=== PATIENT | male | born 1930 | race Caucasian/White ===

== ENCOUNTER 2016-06-27 19:00 | Emergency (ER) | payer OTHER ==
[2016-06-27] MEDS ORDERED: IPRATROPIUM/ALBUTEROL 3 ML DEYVIAL IH ONE (19:12)
--- NOTE | 2016-06-27 19:14 | CPEKG ---
Heart Rate: 93 RR Interval: 645 P-R Interval: 172 QRSD Interval: 74 QT Interval: 372 QTC Interval: 463 P [place]: 48 QRS [place]: 9 T Wave [place]: 78 EKG Severity - NORMAL ECG - EKG Impression: SINUS RHYTHM Electronically Signed By: Wilder Calvo 27-Jun-2016 21:26:34
[2016-06-27 19:39] LABS: % IMMATURE GRANULYOCYTES 0.8 % (0.0-1.1); ABSOLUTE IMMATURE GRANULOCYTES 0.08 10^3/uL (0.00-0.10); ADD DIFF? NO; ADD MORPH? NO; ADD SCAN? NO; ATYPICAL LYMPHOCYTE FLAG 10 (0-99); FRAGMENT RBC FLAG 0 (0-99); HEMATOCRIT 42.4 % (40.0-51.0); HEMOGLOBIN 14.1 g/dL (13.7-17.5); LEFT SHIFT FLG 0 (0-99); LIPEMIA HEMOLYSIS FLAG 80 (0-99); MEAN CELL HEMOGLOBIN 31.3 pg (27.9-34.1); MEAN CELL HEMOGLOBIN CONCENTR. 33.3 g/dL (32.4-36.7); MEAN PLATELET VOLUME 9.8 fL (8.7-11.7); PLATELET CLUMPS FLAG 0 (0-99); PLATELET COUNT 298 10^3/uL (150-400); RED BLOOD CELL COUNT 4.51 10^6/uL (4.40-6.38); RED CELL DISTRIBUTION WIDTH 13.3 % (11.5-15.2)
[2016-06-27] MEDS ORDERED: ALBUTEROL 3 ML DEYVIAL IH ONE (19:44)
[2016-06-27 19:50] LABS: INR 1.92 (0.83-1.16); PROTIME(PATIENT) 21.7 SEC (12.0-15.0)
[2016-06-27 19:51] LABS: APTT 36.1 SEC (23.0-38.0)
[2016-06-27 19:53] LABS: CALCIUM 9.3 mg/dL (8.5-10.4); CREATININE 1.3 mg/dL (0.7-1.3); POTASSIUM 4.3 mEq/L (3.5-5.2)
[2016-06-27] MEDS ORDERED: predniSONE 20 MG TAB PO ONE (20:09)
[2016-06-27] MEDS ORDERED: ALBUTEROL INH PREPACK MDI TAKEHOME ONE ×2 (20:14→20:22)
[2016-06-27] MEDS ORDERED: LEVALBUTEROL 1.25 MG/3 ML DEYVIAL IH ONE (20:14)
--- NOTE | 2016-06-27 20:16 | EDPHY ---
H & P Stated Complaint: SOB, wheezing and Chest pain Time Seen by Provider: 06/27/16 19:19 HPI/ROS: This patient complains of wheezing with history of asthma. He is visiting his daughter in normally lives in [place]. He arrives here in [place] 1 week ago. Patient has a long history of asthma in takes Flovent and albuterol, though arrived with only his Flovent inhaler. Over the past 2 days or so the patient has developed increasing in his wheezing to current moderate wheezing. He mention to his daughter that he felt some slight discomfort in his chest when he walked up stairs today and this prompted the visit for further evaluation along with his wheezing. When queried about this chest discomfort he describes a feeling of tightness in his chest similar to previous asthma exacerbations that worsened with the exertion. He states that the chest pain only was during the time of walking up the steps he has had no chest pain before or since. ROS: No fevers or chills. He does have some fatigue. Other constitutional symptoms HEENT: No recent URI symptoms except for mild coryza that he attributes to "hayfever." Pulmonary: No clearly pleuritic pain. No respiratory distress. Cardiovascular: No heart palpitations or lightheadedness. No diaphoresis. No chest pain since walking up the stairs earlier. GI: No belly pain. No nausea or vomiting. He reports normal bowel movements. : No complaints Integumentary: No skin rash or pallor per daughter Endocrine: No complaints Musculoskeletal: No complaints Complete review of symptoms is otherwise negative Source: Patient, Family (Patient is accompanied by his daughter who also provides history) Exam Limitations: No limitations - Medical/Surgical History PMH: Asthma DVT And PE on warfarin BPH Hx Asthma: Yes Hx Chronic Respiratory Disease: No Hx Diabetes: No Hx Cardiac Disease: No Hx Renal Disease: No Hx Cirrhosis: No Hx Alcoholism: No Hx HIV/AIDS: No Hx Splenectomy or Spleen Trauma: No Other PMH: prostate CA, asthma, PE, DVT - Family History Significant Family History: No pertinent family hx - Social History Smoking Status: Never smoked Alcohol Use: None Drug Use: None Additional Social History: Patient usually lives in [place] with 1 of his daughters. He is visiting [place] for 1 week staying with another daughter while here. He flew here on a plane 1 week ago. He plans to be here through next Saturday the - Physical Exam Exam: Vital signs are notable initially for moderate tachypnea to the mid 20s, mild hypertension 180/103 O2 sat 93% room air normal pulse of 81 General Appearance: Pleasant 85-year-old male Alert, no distress. Eyes: Pupils equal and round no pallor or injection. ENT, Mouth: Mucous membranes moist. Respiratory: Diminished bilaterally with bilateral expiratory wheeze-moderate no rales. No respiratory distress. Cardiovascular: Regular rate and rhythm. No murmur gallop rub. No JVD. No leg swelling, edema or tenderness Gastrointestinal: Abdomen is soft and nontender, no masses, bowel sounds normal. Neurological: GCS 15 with no focal sensory or motor deficits Skin: Warm and dry, no rashes. Musculoskeletal: Neck is supple nontender. Extremities are symmetrical, full range of motion. Psychiatric: Mood and affect are normal DIFFERENTIAL DIAGNOSIS: After history and physical exam differential diagnosis was considered for [place], CHF, asthma, altitude effect, bronchitis, pneumonia, pulmonary embolism Constitutional: Initial Vital Signs O2 Sat (%) 95 06/27/16 19:12 O2 Delivery Mode Room Air O2 (L/minute) 8 Allergies/Adverse Reactions: No Known Allergies Allergy (Unverified 06/27/16 19:14) Home Medications: Medication Instructions Recorded Albuterol Hfa Anes Only [Proair 2 puffs IH Q4 PRN #1 mdi 06/27/16 Hfa Icu (*)] Blood Thinner 06/27/16 Flomax 06/27/16 Mirtazapine 06/27/16 Myrbetriq 06/27/16 Prostate Med 06/27/16 Ranitidine HCl 06/27/16 Warfarin Sodium 06/27/16 predniSONE 40 mg PO DAILY #10 tab 06/27/16 Medical Decision Making - Diagnostics EKG Interpretation: 12 lead EKG performed shortly after arrival indication-dyspnea chest pain rule out coronary syndrome or [place] Performed at 7:12 p.m. reveals sinus rhythm at 93 Intervals: Normal throughout [place]: Normal throughout ST segments: Normal throughout Overall assessment: Normal EKG Imaging Results: Imaging Impressions Chest X-Ray 06/27/16 19:13 Impression: 1. Bronchitis/airways disease. 2. Dextroscoliosis. 3. No definite pneumonia. Chest x-ray: Consistent with airway disease, no focal infiltrates by my interpretation ED Course/Re-evaluation: IV, monitor, DuoNeb with mild increased aeration decreased wheeze and some subjective improvement followed by albuterol neb and days Xopenex neb with further improvement. Prednisone 60 mg p.o. Review of his labs reveals the INR around 2 D-dimer is negative CBC normal This metabolic panel normal Troponin normal Discussion: After workup, I find no evidence of [place], coronary syndrome, PE, pneumothorax, pneumonia. Rather, findings are most consistent with asthma exacerbation improving with treatment. At discharges patient's O2 sat was around 90% on room air but he feels subjective improvement ambulates without difficulty. Clinically on repeat exam is increased aeration decreased wheeze. I counseled his daughter regarding his asthma exacerbation with plan to follow up with the outpatient physician on-call prior to his departure back to [place]. She understands the need to return to the emergency department for any significant worsening of symptoms despite treatment plan - Data Points Laboratory Results: Laboratory Results 06/27/16 19:25 06/27/16 19:25 06/27/16 06/27/16 06/27/16 19:25 19:25 19:25 WBC RBC Hgb Hct MCV MCH MCHC RDW Plt Count MPV Neut % (Auto) Lymph % (Auto) [place] % (Auto) Eos % (Auto) Baso % (Auto) Nucleat RBC Rel Count Absolute Neuts (auto) Absolute Lymphs (auto) Absolute Monos (auto) Absolute Eos (auto) Absolute Basos (auto) Absolute Nucleated RBC Immature Gran % Immature Gran # PT 21.7 SEC H SEC (12.0-15.0) INR 1.92 H (0.83-1.16) APTT 36.1 SEC SEC (23.0-38.0) D-Dimer 0.32 ug/mLFEU ug/mLFEU (0.00-0.50) Sodium 141 mEq/L mEq/L (134-144) Potassium 4.3 mEq/L mEq/L (3.5-5.2) Chloride 99 mEq/L mEq/L (97-110) Carbon Dioxide 26 mEq/l mEq/l (22-31) Anion Gap 16 mEq/L mEq/L (8-16) BUN 22 mg/dL mg/dL (7-23) Creatinine 1.3 mg/dL mg/dL (0.7-1.3) Estimated GFR 52 Glucose 129 mg/dL H mg/dL (70-100) Calcium 9.3 mg/dL mg/dL (8.5-10.4) Troponin I 0.012 ng/mL ng/mL (0-0.034) 06/27/16 19:25 WBC 10.05 10^3/uL H 10^3/uL (3.80-9.50) RBC 4.51 10^6/uL 10^6/uL (4.40-6.38) Hgb 14.1 g/dL g/dL (13.7-17.5) Hct 42.4 % % (40.0-51.0) MCV 94.0 fL fL (81.5-99.8) MCH 31.3 pg pg (27.9-34.1) MCHC 33.3 g/dL g/dL (32.4-36.7) RDW 13.3 % % (11.5-15.2) Plt Count 298 10^3/uL 10^3/uL (150-400) MPV 9.8 fL fL (8.7-11.7) Neut % (Auto) 55.1 % % (39.3-74.2) Lymph % (Auto) 27.7 % % (15.0-45.0) [place] % (Auto) 11.9 % % (4.5-13.0) Eos % (Auto) 3.8 % % (0.6-7.6) Baso % (Auto) 0.7 % % (0.3-1.7) Nucleat RBC Rel Count 0.0 % % (0.0-0.2) Absolute Neuts (auto) 5.54 10^3/uL 10^3/uL (1.70-6.50) Absolute Lymphs (auto) 2.78 10^3/uL 10^3/uL (1.00-3.00) Absolute Monos (auto) 1.20 10^3/uL H 10^3/uL (0.30-0.80) Absolute Eos (auto) 0.38 10^3/uL 10^3/uL (0.03-0.40) Absolute Basos (auto) 0.07 10^3/uL 10^3/uL (0.02-0.10) Absolute Nucleated RBC 0.00 10^3/uL 10^3/uL (0-0.01) Immature Gran % 0.8 % % (0.0-1.1) Immature Gran # 0.08 10^3/uL 10^3/uL (0.00-0.10) PT INR APTT D-Dimer Sodium Potassium Chloride Carbon Dioxide Anion Gap BUN Creatinine Estimated GFR Glucose Calcium Troponin I Medications Given: Discontinued Medications Albuterol (Proventil Neb) 3 ml IH EDNOW ONE Stop: 06/27/16 19:45 Last Admin: 06/27/16 19:50 Dose: 3 ml Albuterol Sulfate (Proventil Inh Prepack) 1 mdi TAKEHOME EDNOW ONE Stop: 06/27/16 20:15 Last Admin: 06/27/16 20:26 Dose: 1 mdi Albuterol/Ipratropium (Duoneb) 3 ml IH EDNOW ONE Stop: 06/27/16 19:13 Last Admin: 06/27/16 19:17 Dose: 3 ml Levalbuterol (Xopenex 1.25mg Neb) 1.25 mg IH EDNOW ONE Stop: 06/27/16 20:15 Last Admin: 06/27/16 20:25 Dose: 1.25 mg Prednisone (Prednisone) 60 mg PO EDNOW ONE Stop: 06/27/16 20:10 Last Admin: 06/27/16 20:18 Dose: 60 mg Departure - Departure Disposition: Home, Routine, Self-Care Clinical Impression: Asthma exacerbation Condition: Good Instructions: Albuterol (By breathing), Asthma (ED) Additional Instructions: Diagnosis: Asthma exacerbation Plan: Humidifier Albuterol inhaler with spacer for cough, wheeze or shortness of breath Prednisone [id number] dose and subsequent doses in the morning after breakfast he stay In call Dr. Elmore to arrange follow-up appointment for recheck sometime within the next 2-5 days Return for any significant worsening despite the treatment plan Referrals: NONE *PRIMARY CARE P,. [Primary Care Provider] - As per Instructions Sandi Elmore MD [Medical Doctor] - As per Instructions Prescriptions: Albuterol Hfa Anes Only [Proair Hfa Icu (*)] 2 puffs IH Q4 PRN #1 mdi PRN Reason: Wheezing predniSONE 40 mg PO DAILY #10 tab
[2016-06-27 20:48] VITALS: RESP 12
[2016-06-27 21:20] VITALS: BP 157/94; PULSE 102; TEMP 98.1; O2SAT 90
== END 2016-06-27 21:19 | disposition home or self-care (01) ==
LOC: CED 19:00
DX: J45.901 Unspecified asthma with (acute) exacerbation (principal); Z79.01 Long term (current) use of anticoagulants; Z85.46 Personal history of malignant neoplasm of prostate
CPT/HCPCS: 71020-PO; 80048-PO; 84484-PO; 85025-PO; 85378-PO; 85610-PO; 85730-PO